=== PATIENT | male | born 1990 | race Caucasian/White ===

== ENCOUNTER 2019-12-02 04:58 | Emergency (ER) | payer MEDICAID ==
--- NOTE | 2019-12-02 05:15 | EDM.PDOC ---
<Real Calvillo - Last Filed: 12/02/19 06:04> ED HPI GENERAL MEDICAL PROBLEM - General Chief Complaint: Gastrointestinal Problem Stated Complaint: SICK,THOWING UP, POOPING, CHILLS, JUST SICK Time Seen by Provider: 12/02/19 05:14 Source of Information: Reports: Patient History Limitations: Reports: No Limitations - History of Present Illness INITIAL COMMENTS - FREE TEXT/NARRATIVE: c/o F/C body aches vomiting & diarrhoea past 6 hours. lives near [facility] and worried. Lower Abdominal Pain Score (Numeric/FACES): 8 - Related Data Allergies Allergy/AdvReac Type Severity Reaction Status Date / Time No Known Allergies Allergy Verified 12/02/19 05:42 Home Meds: Home Meds . [No Known Home Meds] 12/02/19 [History] Past Medical History - Past Health History Medical/Surgical History: Denies Medical/Surgical History Social & Family History - Family History Family Medical History: Noncontributory - Caffeine Use Caffeine Use: Reports: Coffee, Energy Drinks ED ROS GENERAL - Review of Systems Review Of Systems: Comprehensive ROS is negative, except as noted in HPI. ED EXAM, GI/ABD - Physical Exam Exam: See Below Exam Limited By: No Limitations General Appearance: Alert, WD/WN, Mild Distress, Other (discomfort). No: Active Emesis Ears: Hearing Grossly Normal Throat/Mouth: Normal Voice, No Airway Compromise Head: Atraumatic Neck: Non-Tender, Full Range of Motion Respiratory/Chest: No Respiratory Distress Cardiovascular: Regular Rate, Rhythm GI/Abdominal Exam: Tender, Other (generalized epiG>RLQ). No: Distended, Guarding, Rigid, Rebound Neurological: Alert, Oriented, Normal Cognition, Normal Gait, No Motor/Sensory Deficits Psychiatric: Flat Affect Skin Exam: Warm, Dry, Normal Color Lymphatic: No Adenopathy Departure - Departure Disposition: Home, Self-Care 01 Clinical Impression: Abdominal pain, Colitis, Polysubstance (excluding opioids) dependence, daily use - Discharge Information Instructions: Food Choices to Help Relieve Diarrhea, Adult Forms: ED Department Discharge Additional Instructions: Strongly recommended he gets a GI referral from PCP. Push fluids. Patient verbalized understanding. Encouraged him to stop using illicit drugs. Patient verbalized understanding. <Jose Enrique Alamo - Last Filed: 12/02/19 08:02> Course - Vital Signs Last Recorded V/S: Last Vital Signs Temp 98.4 F 12/02/19 05:18 Pulse 97 12/02/19 05:18 Resp 19 12/02/19 05:18 BP 118/67 12/02/19 05:18 Pulse Ox 100 12/02/19 05:18 - Orders/Labs/Meds Orders: Active Orders 24 hr Category Date Time Status CULTURE BLOOD [BC] Stat Lab 12/02/19 05:15 Received Labs: Laboratory Tests 12/02/19 12/02/19 12/02/19 Range/Units 05:07 05:15 05:15 WBC 23.2 H (5.0-10.0) 10^3/uL RBC 5.29 (4.6-6.2) 10^6/uL Hgb 15.6 (14.0-18.0) g/dL Hct 45.9 (40.0-54.0) % MCV 86.8 (80-100) fL MCH 29.5 (27.0-34.0) pg MCHC 34.0 (33.0-35.0) g/dL Plt Count 412 (150-450) 10^3/uL Lymph % (Auto) 4.2 L (20.5-50.1) % [place] % (Auto) 6.5 (2-8) % Eos % (Auto) 1.2 (1.0-3.0) % Add Manual Diff Yes Neutrophils % (Manual) 83 H (42-75) % Band Neutrophils % 6 % Lymphocytes % (Manual) 4 L (20-50) % Monocytes % (Manual) 6 (2-8) % Eosinophils % (Manual) 1 (1-3) % Sodium 147 H (136-145) mmol/L Potassium 3.6 (3.5-5.1) mmol/L Chloride 105 (98-107) mmol/L Carbon Dioxide 31 (21-32) mmol/L Anion Gap 14.6 H (7-13) mEq/L BUN 9 (7-18) mg/dL Creatinine 1.06 (0.70-1.30) mg/dL Est Cr Clr Drug Dosing 99.48 mL/min Estimated GFR (MDRD) > 60 BUN/Creatinine Ratio 8.5 (No establ ref range) Glucose 93 (74-99) mg/dL Lactic Acid (0.4-2.0) mmol/L Calcium 8.8 (8.5-10.1) mg/dL Total Bilirubin 0.3 (0.2-1.0) mg/dL AST 22 (15-37) U/L ALT 43 (16-63) U/L Alkaline Phosphatase 69 (46-116) U/L Total Protein 8.1 (6.4-8.2) g/dL Albumin 4.4 (3.4-5.0) g/dL Globulin 3.7 Albumin/Globulin Ratio 1.2 Amylase (25-115) U/L Lipase (73-393) U/L Urine Color (YELLOW) Urine Appearance (CLEAR) Urine pH (5.0-9.0) Ur Specific Covel (1.005-1.030) Urine Protein (NEGATIVE) Urine Glucose (UA) (NEGATIVE) Urine Ketones (NEGATIVE) Urine Occult Blood (NEGATIVE) Urine Nitrite (NEGATIVE) Urine Bilirubin (NEGATIVE) Urine Urobilinogen (0.2-1.0) mg/dL Ur Leukocyte Esterase (NEGATIVE) Urine RBC /HPF Urine WBC (0-5/HPF) /HPF Ur Epithelial Cells (NOT SEEN) /HPF Calcium Oxalate Crystal (NOT SEEN) /HPF Amorphous Sediment (NOT SEEN) /HPF Urine Bacteria (0-FEW/HPF) /HPF Urine Mucus (NOT SEEN) /LPF Urine Trichomonas (NOT SEEN) /HPF Urine Yeast (NOT SEEN) /HPF Urine Opiates Screen (NEGATIVE) Ur Oxycodone Screen (NEGATIVE) Urine Methadone Screen (NEGATIVE) Ur Barbiturates Screen (NEGATIVE) U Tricyclic Antidepress (NEGATIVE) Ur Phencyclidine Scrn (NEGATIVE) Ur Amphetamine Screen (NEGATIVE) U Methamphetamines Scrn (NEGATIVE) Urine MDMA Screen (NEGATIVE) U Benzodiazepines Scrn (NEGATIVE) Urine Cocaine Screen (NEGATIVE) U Marijuana (THC) Screen (NEGATIVE) COVID-19 (MARE) Negative (NEGATIVE) 12/02/19 12/02/19 12/02/19 Range/Units 05:15 05:15 06:42 WBC (5.0-10.0) 10^3/uL RBC (4.6-6.2) 10^6/uL Hgb (14.0-18.0) g/dL Hct (40.0-54.0) % MCV (80-100) fL MCH (27.0-34.0) pg MCHC (33.0-35.0) g/dL Plt Count (150-450) 10^3/uL Lymph % (Auto) (20.5-50.1) % [place] % (Auto) (2-8) % Eos % (Auto) (1.0-3.0) % Add Manual Diff Neutrophils % (Manual) (42-75) % Band Neutrophils % % Lymphocytes % (Manual) (20-50) % Monocytes % (Manual) (2-8) % Eosinophils % (Manual) (1-3) % Sodium (136-145) mmol/L Potassium (3.5-5.1) mmol/L Chloride (98-107) mmol/L Carbon Dioxide (21-32) mmol/L Anion Gap (7-13) mEq/L BUN (7-18) mg/dL Creatinine (0.70-1.30) mg/dL Est Cr Clr Drug Dosing mL/min Estimated GFR (MDRD) BUN/Creatinine Ratio (No establ ref range) Glucose (74-99) mg/dL Lactic Acid 1.4 (0.4-2.0) mmol/L Calcium (8.5-10.1) mg/dL Total Bilirubin (0.2-1.0) mg/dL AST (15-37) U/L ALT (16-63) U/L Alkaline Phosphatase (46-116) U/L Total Protein (6.4-8.2) g/dL Albumin (3.4-5.0) g/dL Globulin Albumin/Globulin Ratio Amylase 90 (25-115) U/L Lipase 187 (73-393) U/L Urine Color Dark yellow (YELLOW) Urine Appearance Slightly cloudy (CLEAR) Urine pH 6.0 (5.0-9.0) Ur Specific Covel 1.025 (1.005-1.030) Urine Protein 30 H (NEGATIVE) Urine Glucose (UA) Negative (NEGATIVE) Urine Ketones Trace H (NEGATIVE) Urine Occult Blood Moderate H (NEGATIVE) Urine Nitrite Negative (NEGATIVE) Urine Bilirubin Negative (NEGATIVE) Urine Urobilinogen 0.2 (0.2-1.0) mg/dL Ur Leukocyte Esterase Negative (NEGATIVE) Urine RBC 20-30 H /HPF Urine WBC Not seen (0-5/HPF) /HPF Ur Epithelial Cells Rare (NOT SEEN) /HPF Calcium Oxalate Crystal Moderate H (NOT SEEN) /HPF Amorphous Sediment Few (NOT SEEN) /HPF Urine Bacteria Rare (0-FEW/HPF) /HPF Urine Mucus Many H (NOT SEEN) /LPF Urine Trichomonas Not seen (NOT SEEN) /HPF Urine Yeast Not seen (NOT SEEN) /HPF Urine Opiates Screen (NEGATIVE) Ur Oxycodone Screen (NEGATIVE) Urine Methadone Screen (NEGATIVE) Ur Barbiturates Screen (NEGATIVE) U Tricyclic Antidepress (NEGATIVE) Ur Phencyclidine Scrn (NEGATIVE) Ur Amphetamine Screen (NEGATIVE) U Methamphetamines Scrn (NEGATIVE) Urine MDMA Screen (NEGATIVE) U Benzodiazepines Scrn (NEGATIVE) Urine Cocaine Screen (NEGATIVE) U Marijuana (THC) Screen (NEGATIVE) COVID-19 (MARE) (NEGATIVE) 12/02/19 Range/Units 06:42 WBC (5.0-10.0) 10^3/uL RBC (4.6-6.2) 10^6/uL Hgb (14.0-18.0) g/dL Hct (40.0-54.0) % MCV (80-100) fL MCH (27.0-34.0) pg MCHC (33.0-35.0) g/dL Plt Count (150-450) 10^3/uL Lymph % (Auto) (20.5-50.1) % [place] % (Auto) (2-8) % Eos % (Auto) (1.0-3.0) % Add Manual Diff Neutrophils % (Manual) (42-75) % Band Neutrophils % % Lymphocytes % (Manual) (20-50) % Monocytes % (Manual) (2-8) % Eosinophils % (Manual) (1-3) % Sodium (136-145) mmol/L Potassium (3.5-5.1) mmol/L Chloride (98-107) mmol/L Carbon Dioxide (21-32) mmol/L Anion Gap (7-13) mEq/L BUN (7-18) mg/dL Creatinine (0.70-1.30) mg/dL Est Cr Clr Drug Dosing mL/min Estimated GFR (MDRD) BUN/Creatinine Ratio (No establ ref range) Glucose (74-99) mg/dL Lactic Acid (0.4-2.0) mmol/L Calcium (8.5-10.1) mg/dL Total Bilirubin (0.2-1.0) mg/dL AST (15-37) U/L ALT (16-63) U/L Alkaline Phosphatase (46-116) U/L Total Protein (6.4-8.2) g/dL Albumin (3.4-5.0) g/dL Globulin Albumin/Globulin Ratio Amylase (25-115) U/L Lipase (73-393) U/L Urine Color (YELLOW) Urine Appearance (CLEAR) Urine pH (5.0-9.0) Ur Specific Covel (1.005-1.030) Urine Protein (NEGATIVE) Urine Glucose (UA) (NEGATIVE) Urine Ketones (NEGATIVE) Urine Occult Blood (NEGATIVE) Urine Nitrite (NEGATIVE) Urine Bilirubin (NEGATIVE) Urine Urobilinogen (0.2-1.0) mg/dL Ur Leukocyte Esterase (NEGATIVE) Urine RBC /HPF Urine WBC (0-5/HPF) /HPF Ur Epithelial Cells (NOT SEEN) /HPF Calcium Oxalate Crystal (NOT SEEN) /HPF Amorphous Sediment (NOT SEEN) /HPF Urine Bacteria (0-FEW/HPF) /HPF Urine Mucus (NOT SEEN) /LPF Urine Trichomonas (NOT SEEN) /HPF Urine Yeast (NOT SEEN) /HPF Urine Opiates Screen Positive H (NEGATIVE) Ur Oxycodone Screen Negative (NEGATIVE) Urine Methadone Screen Negative (NEGATIVE) Ur Barbiturates Screen Negative (NEGATIVE) U Tricyclic Antidepress Negative (NEGATIVE) Ur Phencyclidine Scrn Negative (NEGATIVE) Ur Amphetamine Screen Negative (NEGATIVE) U Methamphetamines Scrn Negative (NEGATIVE) Urine MDMA Screen Negative (NEGATIVE) U Benzodiazepines Scrn Negative (NEGATIVE) Urine Cocaine Screen Negative (NEGATIVE) U Marijuana (THC) Screen Positive H (NEGATIVE) COVID-19 (MARE) (NEGATIVE) Meds: Medications Discontinued Medications Generic Name Dose Route Start Last Admin Trade Name Freq PRN Reason Stop Dose Admin Sodium Chloride 1,000 mls @ 999 mls/hr 12/02/19 05:24 12/02/19 05:44 Normal Saline IV 12/02/19 06:24 999 mls/hr .BOLUS ONE Administration Iopamidol 100 ml 12/02/19 06:01 12/02/19 06:54 Isovue-300 (61%) IVPUSH 12/02/19 06:02 100 ml ONETIME ONE Administration Ondansetron HCl 4 mg 12/02/19 05:24 12/02/19 05:40 Zofran IVPUSH 12/02/19 05:25 4 mg ONETIME ONE Administration - Radiology Interpretation Free Text/Narrative:: IMPRESSION: 1. Poorly visualized appendix if present. No grossly inflamed appendix is demonstrated. 2. Gastroenterocolitis (infectious vs inflammatory) vs allergic bowel. Diarrhea pattern. - Re-Assessments/Exams Free Text/Narrative Re-Assessment/Exam: Care initiated by Dr. Calvillo. Review HPI and exam from 's notes. Review labs and CT results with patient. Strongly recommended he gets a GI referral from PCP. Push fluids. Patient verbalized understanding. Encouraged him to stop using illicit drugs. Patient verbalized understanding. Departure - Departure Time of Disposition: 08:00 Condition: Good Sepsis Event Note (ED) - Focused Exam Vital Signs: Vital Signs Temp Pulse Resp BP Pulse Ox 12/02/19 05:18 98.4 F 97 19 118/67 100
[2019-12-02] MEDS ORDERED: Sodium Chloride 0.9% 1,000 ML IV ONE (05:24)
[2019-12-02] MEDS ORDERED: Ondansetron 4 MG/2 ML SDV IVPUSH ONE (05:24)
[2019-12-02 05:51] LABS: ANION GAP 14.6 mEq/L (7-13); CHLORIDE,CL 105 mmol/L (98-107); SODIUM,NA 147 mmol/L (136-145)
[2019-12-02] MEDS ORDERED: Iopamidol 612 MG/ML 100 ML Bottle IVPUSH ONE (06:01)
--- NOTE | 2019-12-02 07:39 | CT ---
PROCEDURE INFORMATION: Exam: CT Abdomen And Pelvis With Contrast Exam date and time: 12/02/2019 6:46 AM Age: 29 years old Clinical indication: Abdominal pain; Additional info: General abd pain, wbc 23,100, R/O appy TECHNIQUE: Imaging protocol: Computed tomography of the abdomen and pelvis with intravenous contrast. Radiation optimization: All CT scans at this facility use at least one of these dose optimization techniques: automated exposure control; mA and/or kV adjustment per patient size (includes targeted exams where dose is matched to clinical indication); or iterative reconstruction. Contrast material: ISOVUE; Contrast volume: 75 ml; Contrast route: INTRAVENOUS (IV); COMPARISON: No relevant prior studies available. FINDINGS: Lungs: Clear lung bases. Heart: Normal heart size. Mediastinal space: Small hiatal hernia. Liver: Normal liver. Gallbladder and bile ducts: Nine contracted gallbladder. No gallstone. Pancreas: Normal pancreas. Spleen: Normal spleen. Adrenals: Normal adrenals. Kidneys and ureters: Normal kidneys and ureters. Stomach and bowel: Largely fluid-filled stomach, small bowel and colon. Nonspecific bowel wall thickening. Appendix: Appendix is poorly defined, if present. Intraperitoneal space: No free air, ascites, or abscess. Vasculature: Normal vasculature. Lymph nodes: Small lymph nodes. Bladder: Contracted bladder with nonspecific wall thickening. Reproductive: Normal prostate. Bones/joints: No spondylolysis. No spondylolisthesis. Nonspecific thoracolumbar spine straightening. Soft tissues: Small fat containing umbilical hernia. IMPRESSION: 1. Poorly visualized appendix if present. No grossly inflamed appendix is demonstrated. 2. Gastroenterocolitis (infectious vs inflammatory) vs allergic bowel. Diarrhea pattern.
== END 2019-12-02 08:20 | disposition home or self-care (01) ==
LOC: DL.ED 04:58
DX: K52.9 Noninfective gastroenteritis and colitis, unspecified (principal); F19.20 Other psychoactive substance dependence, uncomplicated
CPT/HCPCS: 36415; 74177; 80053; 80305; 81001; 82150; 83605; 83690; 85025; 87040; 87635; 96361; 96374; 99284; J2405; J7030; Q9967; U0002